=== PATIENT | female | born 1940 | race Asian ===

== ENCOUNTER 2018-10-29 11:33 | Outpatient (CLI) | payer MEDICARE, OTHER ==
--- NOTE | 2018-10-31 15:48 | Diagnostic Imaging Report ---
Indication: Chest pain Technique: Continuous helical transaxial imaging of the chest was obtained from the thoracic inlet to the upper abdomen. No intravenous contrast was administered. Coronal 2-D reformats were also obtained. Total Dose length Product (DLP): 606.[address] Dose Index Volume (CTDIvol): 17.31 mGy Comparison: none Findings: No pulmonary nodules consolidation or interstitial disease identified. Mild reticular densities are demonstrated within the lungs mainly at the periphery. There is slight nodularity of the liver surface. Query underlying chronic disease. Aorta is moderately calcified. Study evaluation is limited by nonadministration of contrast. Degenerative changes of the thoracic spine noted with multiple endplate spurs throughout. There is a midthoracic vertebral hemangioma noted. IMPRESSION: No acute findings. No pulmonary nodule identified. Mild scarring at the periphery of the lungs noted. Incidental findings including atherosclerotic vascular disease, mid thoracic vertebral hemangioma at T7. Query chronic liver disease The CT scanner at [facility] is accredited by the [employer] and the scans are performed using dose optimization techniques as appropriate to a performed exam including Automatic Exposure control.
== END 2018-10-29 13:33 | disposition home or self-care (01) ==
LOC: RAD 11:33
DX: R91.1 Solitary pulmonary nodule (principal)
CPT/HCPCS: 71250

== ENCOUNTER 2019-10-22 10:28 | Emergency (ER) | payer MEDICARE, MEDICAID ==
[~2019-10-22] VITALS: Ht 157.5 cm; Wt 65.8 kg
[2019-10-22 10:40] VITALS: BP 154/74
[2019-10-22] MEDS ORDERED: ZITHROMAX250 MG ORAL (10:50)
[2019-10-22 11:00] VITALS: BP 154/74
--- NOTE | 2019-10-22 14:01 | Emergency Room Report ---
History of Present Illness General Chief Complaint: Sore Throat Source: Patient Present Illness HPI Patient presents with complaints of sore throat ongoing for the past 3 to 4 days Pain with swallowing Denies any fevers denies any rash Denies any change in her voice denies any posterior neck pain Pain is 8 out of 10 worse with swallowing patient's primary physician is out of town and she presents to the ER for further eval Allergies: Coded Allergies: No Known Allergies (Unverified , 10/22/19) Patient History Past Medical History: see triage record Reviewed Nursing Documentation: PMH: Agreed; PSxH: Agreed Nursing Documentation-PMH Past Medical History: No History, Except For Hx Diabetes: Yes Review of Systems All Other Systems: negative except mentioned in HPI Physical Exam Vital Signs Date Time Temp Pulse Resp B/P (MAP) Pulse Ox O2 Delivery O2 Flow Rate FiO2 10/22/19 10:28 98.1 96 16 154/74 (100) 93 Room Air Sp02 EP Interpretation: reviewed, normal General Appearance: well appearing, no apparent distress Head: normocephalic, atraumatic Eyes: bilateral eye PERRL, bilateral eye EOMI ENT: uvula midline, pharyngeal erythema - Voice is normal Neck: supple, no meningismus Respiratory: lungs clear Cardiovascular #1: regular rate, rhythm Gastrointestinal: non tender, soft Musculoskeletal: normal inspection Neurologic: alert, oriented x3 Psychiatric: normal inspection Skin: no rash Lymphatic: normal inspection Medical Decision Making Diagnostic Impression: Primary Impression: pharyngitis ER Course Given the history and exam multiple differentials including but not limited to pharyngitis, peritonsillar abscess, retropharyngeal abscess entertained Patient's exam appears to be consistent with pharyngitis also with erythema possibly bacterial And patient will have initial conservative outpatient trial Last Vital Signs Date Time Temp Pulse Resp B/P (MAP) Pulse Ox O2 Delivery O2 Flow Rate FiO2 10/22/19 11:00 98.1 16 154/74 93 Room Air 10/22/19 10:28 96 Status: improved Disposition: HOME, SELF-CARE Condition: Improved Scripts Azithromycin* (ZITHROMAX*) 250 Mg Tablet 250 MG ORAL DAILY, #6 TAB 0 Refills Take two tables once daily for 1 day, then one tablet once daily for 4 days. Prov: Roderick Murray DO 10/22/19 Referrals: NON PHYSICIAN (PCP) pmd Patient Instructions: Pharyngitis, [id number] Additional Instructions: Patient is provided with the discharge instructions notified to follow up with primary doctor in the next 2-3 days otherwise return to the er with any worsening symptoms. Please note that this report is being documented using [employer] technology. This can lead to erroneous entry secondary to incorrect interpretation by the dictating instrument. Roderick Murray DO Oct 22, 2019 14:01
== END 2019-10-22 11:00 | disposition home or self-care (01) ==
LOC: EMR 11:00
DX: J02.9 Acute pharyngitis, unspecified (principal); E11.9 Type 2 diabetes mellitus without complications
CPT/HCPCS: 99282